=== PATIENT | female | born 1985 | race Caucasian/White ===

== ENCOUNTER 2021-02-09 06:06 | Inpatient (IN) | payer BC ==
[~2021-02-09] VITALS: Ht 170.2 cm; Wt 75.0 kg
[2021-02-09 06:09] VITALS: BP 121/82
[2021-02-09] MEDS ORDERED: TERBUTALINE 1 MG/ML, 1ML IVPush PRN (06:30)
[2021-02-09] MEDS ORDERED: TERBUTALINE 1 MG/ML, 1ML SQ PRN (06:30)
[2021-02-09] MEDS ORDERED: OXYTOCIN 30U/ 0.9% NaCL 500ML 500 ML IV ONE (06:30)
[2021-02-09] MEDS ORDERED: NEWBORN KIT ONE (06:30)
[2021-02-09] MEDS ORDERED: OXYTOCIN 30U/ 0.9% NaCL 500ML 500 ML ONE (06:30)
[2021-02-09] MEDS ORDERED: PLEASE ENTER HEIGHT AND WEIGHT MC SCH (07:00)
[2021-02-09 07:11] LABS: BASOPHILS % (AUTO) 1 % (0-1); EOSINOPHILS % (AUTO) 1 % (1-7); LYMPHOCYTES % (AUTO) 19 % (22-44); MEAN CORPUSCULAR HGB CONC 34.4 g/dL (32.4-35.8); MEAN PLATELET VOLUME 8.8 fL (7.4-10.4); MONOCYTES % (AUTO) 7 % (2-9); NEUTROPHILS % (AUTO) 72 % (42-75); PLATELET COUNT 188 x10^3/uL (130-400); RED BLOOD COUNT 4.04 x10^6/uL (3.82-5.3); RED CELL DISTRIBUTION WIDTH 12.8 % (9.6-15.2)
[2021-02-09 07:14] LABS: MD NO
[2021-02-09] MEDS ORDERED: MISOPROSTOL 200 MCG TABLET ONE (10:24)
[2021-02-09] MEDS: OXYTOCIN 30U/ 0.9% NaCL 500ML 500 ML IV SCH ×2 (10:29→11:00)
[2021-02-09] MEDS ORDERED: ACETAMINOPHEN 325 MG TABLET PO PRN (11:00)
[2021-02-09] MEDS ORDERED: IBUPROFEN 800 MG TABLET PO PRN (11:00)
[2021-02-09] MEDS ORDERED: BISACODYL 10 MG SUPP PR PRN (11:00)
[2021-02-09] MEDS ORDERED: ONDANSETRON 2MG/ML, 2ML IV PRN (11:00)
[2021-02-09] MEDS ORDERED: RHOGAM FROM BLOOD BANK 1 NOTE EA IM/IV ONE (11:00)
[2021-02-09] MEDS ORDERED: HYDROcodone/APAP 5/325 TABLET PO PRN (11:00)
[2021-02-09] MEDS ORDERED: OXYcodone/APAP 5/325MG TABLET PO PRN (11:00)
[2021-02-09] MEDS ORDERED: MISOPROSTOL 200 MCG TABLET PR PRN (11:00)
[2021-02-09 18:21] LABS: BASOPHILS % (AUTO) 0 % (0-1); EOSINOPHILS % (AUTO) 0 % (1-7); LYMPHOCYTES % (AUTO) 12 % (22-44); MEAN CORPUSCULAR HEMOGLOBIN 32.1 pg (27.0-34.8); MEAN PLATELET VOLUME 9.1 fL (7.4-10.4); MONOCYTES % (AUTO) 7 % (2-9); NEUTROPHILS % (AUTO) 81 % (42-75); PLATELET COUNT 206 x10^3/uL (130-400); RED BLOOD COUNT 4.02 x10^6/uL (3.82-5.3); RED CELL DISTRIBUTION WIDTH 12.8 % (9.6-15.2)
[2021-02-09 18:23] LABS: MD NO
[2021-02-09 19:40] VITALS: BP 114/70
[2021-02-09] MEDS: DOCUSATE 100 MG CAPSULE PO PRN (19:45)
[2021-02-09] MEDS ORDERED: IBUPROFEN 600 MG TABLET ONE (21:18)
[2021-02-10] MEDS: OXYTOCIN 30U/ 0.9% NaCL 500ML 500 ML IV SCH ×2 (03:07→03:08)
[2021-02-10 08:15] VITALS: BP 113/74
[2021-02-10] MEDS ORDERED: PRENATAL VIT/IRON/FA 1 EACH TABLET PO SCH (09:00)
[2021-02-10] MEDS: DOCUSATE 100 MG CAPSULE PO PRN (10:03)
[2021-02-10] MEDS ORDERED: IBUP-1223 PO (17:23)
[2021-02-10] MEDS ORDERED: DOCU-131 PO (17:23)
== END 2021-02-10 18:05 | disposition home or self-care (01) | DRG 807 ==
LOC: LDOP 06:06 → LDIP 06:30 → 2NW 12:33
PROVIDERS: ADMIT Obstetrics & Gynecology; ATTEND Obstetrics & Gynecology
PROC: 10E0XZZ Delivery of Products of Conception, External Approach (ICD-10-PCS; principal; 2021-02-09)
DX: O69.81X0 Labor and delivery complicated by cord around neck, without compression, not applicable or unspecified (principal); Z37.0 Single live birth; Z3A.40 40 weeks gestation of pregnancy; Z83.3 Family history of diabetes mellitus; Z20.822 Contact with and (suspected) exposure to COVID-19
CPT/HCPCS: 36415; 85025; 86592; 86850; 86900; 87635; G0378; J2590